=== PATIENT | female | born 2000 | race Caucasian/White ===

== ENCOUNTER 2022-01-24 23:44 | Emergency (ER) | payer OTHER, SELFPAY ==
--- NOTE | ~2022-01-24 | CT_ITS ---
EXAMINATION: CT ABDOMEN AND PELVIS WITH CONTRAST CLINICAL INFORMATION: Left upper quadrant pain and tenderness, mononucleosis COMPARISON: None TECHNIQUE: Multidetector volumetric images were obtained from the superior aspect of the liver through the pubic symphysis following administration 85 mL of Omnipaque 350 intravenous contrast. Sagittal and coronal reformatted images were obtained on the technologist's workstation. Oral contrast: No This CT examination was performed using dose optimization techniques as appropriate, variously including the following: *Automated exposure control *Adjustment of mA and/or kV according to patient size (this includes techniques or standardized protocols for targeted exams where dose is matched to indication/reason for exam; i.e. extremities or head) *Use of iterative reconstruction technique DLP: 393 mGy-cm FINDINGS: LUNG BASES: The visualized lung bases are unremarkable. LIVER, GALLBLADDER, AND BILIARY TREE: The liver is normal in size, shape, and attenuation. No focal hepatic lesion or biliary ductal dilatation is present. Gallbladder appears contracted. PANCREAS: Unremarkable. SPLEEN: Normal size, measuring to 11.4 cm in length. No focal abnormality identified. ADRENAL GLANDS: Unremarkable. KIDNEYS AND URETERS: The kidneys are normal in size, shape, and attenuation. No hydronephrosis, hydroureter, or calculi seen. No perinephric stranding. BLADDER: Unremarkable. GASTROINTESTINAL TRACT: No evidence of bowel obstruction or significant wall thickening. The appendix is unremarkable. No free air is seen. ABDOMINAL WALL: No significant hernia is appreciated. LYMPH NODES: Normal. VASCULAR: Unremarkable. PELVIC VISCERA: There is a simple appearing 2.9 cm left adnexal cyst. Small volume of simple appearing pelvic free fluid is noted. OSSEOUS STRUCTURES: Unremarkable. CT/CT abdomen pelvis w IV con IMPRESSION: 1. Normal-appearing spleen. 2. Small volume of nonspecific pelvic free fluid, which may be physiologic.
[2022-01-24 23:49] VITALS: BP 135/68; PULSE 106; RESP 18; TEMP 36.6; O2SAT 96; BMI 22.6
[2022-01-25 00:13] LABS: Basophils Percent Auto 0.4 % (0-2); Eosinophils Absolute Auto 0.2 X10*3/uL (0.0-0.4); Eosinophils Percent Auto 1.5 % (0-4); Hematocrit 40.7 % (37.0-47.0); Hemoglobin 13.7 g/dl (12.0-16.0); Imm Gran Abs Auto 0.03 X10*3/uL (0.00-0.03); Imm Gran Pct Auto 0.3 % (0.0-0.4); Lymphocytes Absolute Auto 4.7 X10*3/uL (1.2-4.9); Lymphocytes Percent Auto 41.8 % (20-40); MANUAL DIFF FLAG SCAN; Mean Corpuscular HGB Conc 33.7 g/dl (31.0-35.0); Mean Platelet Volume 8.4 fL (9.4-12.3); Monocytes Absolute Auto 1.1 X10*3/uL (0.1-1.2); Monocytes Percent Auto 9.5 % (2-11); Neutrophils Absolute Auto 5.2 x10*3/uL (2.0-8.3); Neutrophils Percent Auto 46.5 % (45-73); Platelet Count 370 X10*3/uL (160-400); Red Blood Count 4.73 X10*6/uL (4.20-5.50); Red Cell Distribution Width 12.2 % (11.0-16.0); SCAN SMEAR FLAG 1; White Blood Count 11.2 X10*3/uL (4.8-10.8)
[2022-01-25 00:25] LABS: Appearance Urine Cloudy; Color Urine Yellow; Glucose Urine UA Negative (Negative); Leukocyte Esterase Urine Moderate (2+) (Negative); Nitrite Urine Negative (Negative); PH 5.5 (5.0-9.0); Specific Gravity - Urine 1.025 (1.005-1.025); UMIC TRIGGER UACC YES; Urine Blood Negative (Negative); Urine Ketones Negative (Negative); Urine Protein Negative (Neg-Trace)
[2022-01-25 00:41] LABS: UPreg QC Valid YES; Urine Pregnancy NEGATIVE (NEGATIVE)
[2022-01-25 00:42] LABS: Bacteria Urine 2+ (None Seen); Hyaline Casts Urine 0-2 /LPF (0-2); RBC Urine 0-2 /HPF (0-2); Squamous Epithelial Cell Urine >20 /HPF (0-2); UACC Culture Trigger YES; WBC Urine 21-50 /HPF (0-5)
[2022-01-25 00:43] LABS: Alanine Aminotransferase 129 U/L (0-31); Albumin Level 3.8 g/dL (3.5-5.0); Alkaline Phosphatase 161 U/L (39-117); Anion Gap 14 (12-20); Aspartate Amino Transferase 36 U/L (5-31); Blood Urea Nitrogen 9 mg/dL (9-16); Carbon Dioxide 23 mmol/L (22-29); Chloride 107 mmol/L (96-108); Creatinine Clr Calc Pharmacy 114.8; Estimated Glomerular Filt Rate > 60; Glucose Random 99 mg/dL (60-115); Lipase 51 U/L (8-78); Potassium 4.1 mmol/L (3.3-5.1); SLIDE REVIEW VERIFIED; Sodium 140 mmol/L (135-145); Total Protein 7.5 g/dL (6.5-8.0)
[2022-01-25 00:53] LABS: Bilirubin Total 0.7 mg/dL (0.0-1.0)
[2022-01-25 02:00] VITALS: BP 134/70; PULSE 105; RESP 16; TEMP 36.6; O2SAT 97
--- NOTE | 2022-01-25 02:10 | ED_ITS ---
HPI - General Adult General Chief complaint: General Medical Stated complaint: Abd pain Time Seen by Provider: 01/25/22 01:59 Source: patient and family (Mother, Mohini) Mode of arrival: ambulatory Limitations: no limitations History of Present Illness HPI narrative: 21-year-old female who presents emergency department for evaluation of left upper quadrant pain. Patient states she has been sick for approximately 4 weeks. She initially became ill in [place] and was subsequently diagnosed with mononucleosis approximately 1 week prior. Patient states that her symptoms of included fever, fatigue, body aches, swollen lymph nodes in her neck right greater than left, sore throat, postnasal drip. She also developed a rash over her entire body was diagnosed with pityriasis rosea She states that 2 weeks prior she had a sudden onset of sharp left upper quadrant pain which was 10/10. She states since that time she has had constant left upper quadrant sharp pain which is now 7/10. She states that most of her symptoms have resolved but she continues to have a sore throat and postnasal drip. She denied nausea, vomiting, change in her bowel movements, frequency, urgency or dysuria. Related Data Allergies Allergy/AdvReac Type Severity Reaction Status Date / Time amoxicillin [AMOXICILLIN] Allergy Unknown HIVES Verified 01/24/22 23:54 Review of Systems Review of Systems: Yes all other systems are reviewed and are negative [facility] Past Medical History [facility] Narrative: Past medical history: None. Past surgical history: [place] teeth removal. Social history: She denies tobacco, alcohol and drug use. Social History Social History Alcohol intake: never Smoked in Last 30 Days: No Use of substances other than those prescribed or required for medical reasons: No Advance Directives: No Advance Directives Information Provided: Yes Physical Exam ED Vital Signs: Vital Signs - 24 hr 01/24/22 23:49 01/25/22 02:00 Temperature 97.9 F 97.9 F Pulse Rate 106 H 105 H Respiratory Rate 18 16 Blood Pressure 135/68 134/70 Pulse Oximetry 96 97 Oxygen Delivery Method Room Air BMI result Body Mass Index 22.6 Const General: cooperative and no acute distress Orientation/consciousness: oriented to person and oriented to place Limitations: no limitations HENMT Head: Yes normal to inspection, Yes normocephalic and Yes atraumatic Ears: external ears normal General nose exam: Normal external nose present Face and sinus: Yes normal facial exam Mouth: Normal oral and palatal mucosa present Throat: Yes posterior oropharynx normal Eyes General: appearance normal, both eyes and all related structures Pupils: Equal, round and reactive pupils present Neck Neck: Yes normal visual inspection, Yes no lymphadenopathy, Yes trachea midline and Yes supple Chest Chest palpation & inspection: normal inspection of the chest and normal palpati on of entire chest wall Resp Effort & Inspection: normal respiratory effort and able to speak in complete sentences Auscultation: clear to auscultation bilaterally Cardio Rate: regular rate Rhythm: regular rhythm Heart sounds: S1 normal heart sound present, S2 normal heart sound present and no murmurs GI Inspection: Yes normal to inspection Palpation (GI): Soft to palpation, Tenderness to palpation present (GI) (Moderate left upper quadrant tenderness) and no guarding Auscultation: normal bowel sounds General: Yes no CVA tenderness Back/Spine/Pelvis Back: no CVA tenderness Skin Other: Rash on her back and chest and arms consistent with pityriasis rosea Neuro General: oriented to person and oriented to place Cranial nerves: Yes CN's II-XII intact bilaterally and Yes Equal, round and reactive pupils present Cognition (Neuro): normal cognition Motor exam (neuro): 5/5 motor strength present throughout Extrem General: Yes normal to inspection Psych Appearance: grossly normal Speech and movement: Normal speech and movement present Affect: normal affect Attitude: cooperative Thought process: Normal thought process present Thought content: Normal thought content present Course Course Course Narrative: 21-year-old female who was diagnosed with mononucleosis 1 week prior who has been sick for approximately 4 weeks with viral symptoms consistent with mononucleosis. Two weeks prior she developed left upper quadrant pain which came on suddenly and was 10 of 10, the pain is been constant and is now 7/10. Vital signs revealed an elevated pulse of 106 otherwise were unremarkable. Patient's physical examination did reveal left upper quadrant tenderness as well as rash consistent with pityriasis rosea. Laboratory evaluation [place] [address], elevated AST and ALT of 36 and 129 and elevat ed alkaline phosphatase of 161. Given her right upper quadrant tenderness in the possibility of splenic injury in mononucleosis, I did order a CT scan of the abdomen pelvis with IV contrast. Patient was given Toradol 15 mg IV, Zofran 4 mg IV and normal saline x1 L. 0445: CT scan of the abdomen pelvis revealed a normal-appearing spleen with no other abnormalities. I did discuss this with the patient patient's mother. The patient did feel better after the above treatment. At this time I believe the patient's pain is probably caused by inflammation of her spleen and she may benefit from steroids. The patient was given prednisone 60 mg orally. She was given prescription for prednisone 60 mg once a day for 7 days. She was advised to take Tylenol for pain and to avoid NSAIDs. Patient was given printed and verbal instructions and discharged home. Medications Administered Discontinued Medications Generic Name Dose Route Start Last Admin Trade Name [place] PRN Reason Stop Dose Admin Sodium Chloride 1,000 mls @ 999 mls/hr 01/25/22 02:27 01/25/22 02:45 Ns IV 01/25/22 03:27 999 mls/hr .Q1H1M STA Administration Iohexol 85 ml 01/25/22 03:04 01/25/22 03:04 Iohexol 350 Mg/Ml 100 Ml Infus..Btl IV 01/25/22 03:05 85 ml ONCE ONE Administration Ketorolac Tromethamine 15 mg 01/25/22 02:27 01/25/22 02:44 Ketorolac Tromethamine 15 Mg/Ml Vial IVPUSH 01/25/22 02:28 15 mg ONCE STA Administration Ondansetron HCl 4 mg 01/25/22 02:27 01/25/22 02:44 Ondansetron Hcl 4 Mg/2 Ml Vial IVPUSH 01/25/22 02:28 4 mg ONCE ONE Administration Medical Decision Making Lab Data Result diagrams: 01/25/22 00:07 01/25/22 00:07 Labs: Lab Results 01/25/22 01/25/22 01/25/22 Range/Units 00:07 00:07 00:13 WBC 11.2 H (4.8-10.8) X10*3/uL RBC 4.73 (4.20-5.50) X10*6/uL Hgb 13.7 (12.0-16.0) g/dl Hct 40.7 (37.0-47.0) % MCV 86.0 (80.0-98.0) fL MCH 29.0 (27.0-33.0) pg MCHC 33.7 (31.0-35.0) g/dl RDW 12.2 (11.0-16.0) % Plt Count 370 (160-400) X10*3/uL MPV 8.4 L (9.4-12.3) fL Immature Gran % (Auto) 0.3 (0.0-0.4) % Neut % (Auto) 46.5 (45-73) % Lymph % (Auto) 41.8 H (20-40) % [place] % (Auto) 9.5 (2-11) % Eos % (Auto) 1.5 (0-4) % Baso % (Auto) 0.4 (0-2) % Lymph # (Auto) 4.7 (1.2-4.9) X10*3/uL [place] # (Auto) 1.1 (0.1-1.2) X10*3/uL Eos # (Auto) 0.2 (0.0-0.4) X10*3/uL Baso # (Auto) 0.0 (0.0-0.2) X10*3/uL Abs Immat Gran (auto) 0.03 (0.00-0.03) X10*3/uL Absolute Neuts (auto) 5.2 (2.0-8.3) x10*3/uL Absolute Nucleated RBC 0.000 (0.0-0.012) X10*3/uL Nucleated RBC % (auto) 0.0 (0.0-0.2) /100WBC Smear Tech's Comments VERIFIED Sodium 140 (135-145) mmol/L Potassium 4.1 (3.3-5.1) mmol/L Chloride 107 (96-108) mmol/L Carbon Dioxide 23 (22-29) mmol/L Anion Gap 14 (12-20) BUN 9 (9-16) mg/dL Creatinine 0.68 (0.5-1.4) mg/dL Estim Creat Clear Calc 114.8 Estimated GFR > 60 Random Glucose 99 (60-115) mg/dL Calcium 9.0 (8.4-10.2) mg/dL Total Bilirubin 0.7 (0.0-1.0) mg/dL AST 36 H (5-31) U/L ALT 129 H (0-31) U/L Alkaline Phosphatase 161 H (39-117) U/L Total Protein 7.5 (6.5-8.0) g/dL Albumin 3.8 (3.5-5.0) g/dL Lipase 51 (8-78) U/L Urine Color Yellow Urine Appearance Cloudy Urine pH 5.5 (5.0-9.0) Ur Specific [place] 1.025 (1.005-1.025) Urine Protein Negative (Neg-Trace) mg/dL Urine Glucose (UA) Negative (Negative) mg/dL Urine Ketones Negative (Negative) mg/dL Urine Blood Negative (Negative) Urine Nitrite Negative (Negative) Ur Leukocyte Esterase Moderate (2+) H (Negative) Urine RBC 0-2 (0-2) /HPF Urine WBC 21-50 H (0-5) /HPF Ur Squamous Epith Cells >20 (0-2) /HPF Urine Bacteria 2+ (None Seen) Hyaline Casts 0-2 (0-2) /LPF Urine Yeast Present Urine Test (NEGATIVE) 01/25/22 Range/Units 00:13 WBC (4.8-10.8) X10*3/uL RBC (4.20-5.50) X10*6/uL Hgb (12.0-16.0) g/dl Hct (37.0-47.0) % MCV (80.0-98.0) fL MCH (27.0-33.0) pg MCHC (31.0-35.0) g/dl RDW (11.0-16.0) % Plt Count (160-400) X10*3/uL MPV (9.4-12.3) fL Immature Gran % (Auto) (0.0-0.4) % Neut % (Auto) (45-73) % Lymph % (Auto) (20-40) % [place] % (Auto) (2-11) % Eos % (Auto) (0-4) % Baso % (Auto) (0-2) % Lymph # (Auto) (1.2-4.9) X10*3/uL [place] # (Auto) (0.1-1.2) X10*3/uL Eos # (Auto) (0.0-0.4) X10*3/uL Baso # (Auto) (0.0-0.2) X10*3/uL Abs Immat Gran (auto) (0.00-0.03) X10*3/uL Absolute Neuts (auto) (2.0-8.3) x10*3/uL Absolute Nucleated RBC (0.0-0.012) X10*3/uL Nucleated RBC % (auto) (0.0-0.2) /100WBC Smear Tech's Comments Sodium (135-145) mmol/L Potassium (3.3-5.1) mmol/L Chloride (96-108) mmol/L Carbon Dioxide (22-29) mmol/L Anion Gap (12-20) BUN (9-16) mg/dL Creatinine (0.5-1.4) mg/dL Estim Creat Clear Calc Estimated GFR Random Glucose (60-115) mg/dL Calcium (8.4-10.2) mg/dL Total Bilirubin (0.0-1.0) mg/dL AST (5-31) U/L ALT (0-31) U/L Alkaline Phosphatase (39-117) U/L Total Protein (6.5-8.0) g/dL Albumin (3.5-5.0) g/dL Lipase (8-78) U/L Urine Color Urine Appearance Urine pH (5.0-9.0) Ur Specific [place] (1.005-1.025) Urine Protein (Neg-Trace) mg/dL Urine Glucose (UA) (Negative) mg/dL Urine Ketones (Negative) mg/dL Urine Blood (Negative) Urine Nitrite (Negative) Ur Leukocyte Esterase (Negative) Urine RBC (0-2) /HPF Urine WBC (0-5) /HPF Ur Squamous Epith Cells (0-2) /HPF Urine Bacteria (None Seen) Hyaline Casts (0-2) /LPF Urine Yeast Urine Test NEGATIVE (NEGATIVE) Discharge Plan Discharge Clinical Impression: Abdominal pain, Mononucleosis Patient Disposition: Home, Self-Care Instructions: Mononucleosis (ED) Additional Instructions: Your blood work did reveal elevation in your liver test which is consistent with mononucleosis otherwise there were no significant abnormalities. The CT scan of your abdomen pelvis was normal, there was no abnormality noted in your spleen which is reassuring. Mononucleosis can often cause inflammation of the liver and spleen and I believe that this is what is causing your pain. Take prednisone 20 mg pills, 3 pills once a day for 7 days. While you are taking prednisone, do not take any NSAIDs (Motrin, Advil, ibuprofen, Aleve, naproxen). Follow-up with your doctor in 2 days. Please return to the emergency department if your symptoms get worse or if you develop any symptoms that are concerning to you.
[2022-01-25] MEDS: ondansetron HCL 4 MG/2 ML VIAL IVPUSH (02:44)
[2022-01-25] MEDS: Ketorolac Tromethamine 15 MG/ML VIAL IVPUSH (02:44)
[2022-01-25] MEDS: 0.9 % Sodium Chloride 1,000 ML 999 ML IV (02:45)
[2022-01-25] MEDS: iohexoL 350 MG/ML 100 ML INFUS..BTL 85 ML IV (03:04)
[2022-01-25] MEDS: predniSONE 20 MG TABLET 60 MG PO (05:12)
[2022-01-25 05:25] VITALS: BP 112/68; PULSE 68; RESP 18; TEMP 36.6; O2SAT 98
== END 2022-01-25 05:27 | disposition home or self-care (01) ==
PROVIDERS: Emergency Provider Emergency Medicine Emergency Medical Services
DX: B27.90 Infectious mononucleosis, unspecified without complication (principal); R10.12 Left upper quadrant pain
CPT/HCPCS: 36415; 74177; 80053; 81001; 81025; 83690; 85025; 87086; 96374; 96375; 99284; J1885; J2405; Q9967